=== PATIENT | female | born 1975 | race Caucasian/White ===

== ENCOUNTER 2018-07-09 11:24 | Observation (INO) ==
[2018-07-09] MEDS ORDERED: Sodium Chlor 0.9% Inj 500 ML IV.CONT ONE (12:45)
[2018-07-09] MEDS ORDERED: Metoprolol Tartrate 25 MG Tablet PO ONE (12:45)
[2018-07-09] MEDS ORDERED: Chlorhexidine Gluconate 2% 1 Pack (2 Cloths) TOPICAL ONE (12:45)
[2018-07-09] MEDS ORDERED: ceFAZolin 2 GM IV; once IV.SIG ONE (13:00)
[2018-07-09] MEDS ORDERED: Famotidine PF Inj 20 MG/2 ML Vial ONE (13:37)
[2018-07-09] MEDS ORDERED: Bupivacaine 0.5% Inj 50 ML MDV Vial ONE (14:16)
--- NOTE | 2018-07-09 16:12 | XR ---
EXAM DATE: 07/09/2018 4:09 PM EST AGE/SEX: 43 years / Female INDICATIONS: Removal of bone spur on left calcaneous. CLINICAL DATA: This is the patient's initial encounter. Patient reports that signs and symptoms have been present for 1 day and indicates a pain score of Nonresponsive. MEDICAL/SURGICAL HISTORY: Non-responsive. Non-responsive. COMPARISON: No prior exams available for comparison. FINDINGS: 2 intraoperative films were performed. There is post surgical changes of the soft tissues posterior t o the calcaneus. The visualized bony structures are grossly intact. The enthesophyte along the rubber calender helper ior calcaneus appears to be removed on the second image. CONCLUSION: Removal of enthesophyte along the posterior calcaneus. Electronically signed by: Clive Humphries MD Board Certified Radiologist 07/09/2018 4:11 PM EST
[2018-07-09] MEDS ORDERED: fentaNYL Citrate Inj 100 MCG/2 ML Ampul ONE (17:33)
[2018-07-09] MEDS ORDERED: Morphine Inj 4 MG/ML Vial ONE (17:33)
[2018-07-09] MEDS ORDERED: *Ondansetron Inj 4 MG/2 ML Vial PERIprocedural Use ONLY ONE (17:44)
--- NOTE | 2018-07-09 17:53 | P.HPIM ---
History of Present Illness Primary Care Physician: Tanja Sanches Medications and Allergies Allergies Allergy/AdvReac Type Severity Reaction Status Date / Time Sulfa (Sulfonamide AdvReac unknown Verified 07/09/18 12:04 Antibiotics) Home Medications Medication Instructions Recorded Confirmed Type No Known Home Medications 07/08/18 07/09/18 History Active Medications: Active Medications Lactated Ringer's (Lr 1000 Ml Inj) 1,000 mls @ 30 mls/hr IV.CONT .Q24H ONE Stop: 07/10/18 12:44 Last Infusion: 07/09/18 17:18 Dose: Infused Sodium Chloride (Ns Inj) 500 mls @ 30 mls/hr IV.CONT .[id number] ONE Stop: 07/10/18 05:24 Last Admin: 07/09/18 13:27 Dose: Not Given Physical Exam Vital signs: Last Vital Signs Temp 98.3 F 07/09/18 12:07 Pulse 88 07/09/18 12:07 Resp 18 07/09/18 12:07 BP 154/97 H 07/09/18 12:07 Pulse Ox 100 07/09/18 13:45 Caprini VTE Risk Assessment Caprini Risk Assessment Model: Point Value = 1 Point Value = 2 Point Value = 3 Point Value = 5 Age 41-60 Minor surgery BMI > 25 kg/m2 Swollen legs Varicose veins or History of unexplained or recurrent spontaneous Oral contraceptives or hormone replacement Sepsis (< 1 month) Serious lung disease, including pneumonia (< 1 month) Abnormal pulmonary function Acute myocardial infarction Congestive heart failure (< 1 month) History of inflammatory bowel disease Medical patient at bed rest Age 61-74 Arthroscopic surgery Major open surgery (> 45 min) Laparoscopic surgery (> 45 min) Malignancy Confined to bed (> 72 hours) Immobilizing plaster cast Central venous access Age >= 75 History of VTE Family history of VTE Factor V Leiden Prothrombin [id number] Lupus anticoagulant Anticardiolipin antibodies Elevated serum homocysteine Heparin-induced thrombocytopenia Other congenital or acquired thrombophilia Stroke (< 1 month) Elective arthroplasty Hip, pelvis, or leg fracture Acute spinal cord injury (< 1 month) Prophylaxis Regimen: Total Risk Factor Score Risk Level Prophylaxis Regimen 0-1 Low Early ambulation 2 Moderate Order ONE of the following: *Sequential Compression Device (SCD) *Heparin 5000 units SQ BID 3-4 Higher Order ONE of the following medications: *Heparin 5000 units SQ TID *Enoxaparin/Lovenox 40 mg SQ daily (WT < 150 kg, CrCl > 30 mL/min) *Enoxaparin/Lovenox 30 mg SQ daily (WT < 150 kg, CrCl > 10-29 mL/min) *Enoxaparin/Lovenox 30 mg SQ BID (WT < 150 kg, CrCl > 30 mL/min) AND/OR *Sequential Compression Device (SCD) 5 or more Highest Order ONE of the following medications: *Heparin 5000 units SQ TID (Preferred with Epidurals) *Enoxaparin/Lovenox 40 mg SQ daily (WT < 150 kg, CrCl > 30 mL/min) *Enoxaparin/Lovenox 30 mg SQ daily (WT < 150 kg, CrCl > 10-29 mL/min) *Enoxaparin/Lovenox 30 mg SQ BID (WT < 150 kg, CrCl > 30 mL/min) AND *Sequential Compression Device (SCD) H&P: Quality VTE Deep Vein Thrombosis/Pulmonary Embolism Present on Admission: No
[2018-07-09] MEDS ORDERED: Acetaminophen 325 MG Tablet PO PRN (17:54)
[2018-07-09] MEDS ORDERED: Bisacodyl 10 MG Supp RECTAL PRN (17:54)
[2018-07-09] MEDS ORDERED: *morphine SULFATE 4 MG/ML PERIprocedure ONLY ONE (18:16)
[2018-07-09] MEDS: Morphine Sulfate Inj 2 MG/ML Vial IV.PUSH PRN (23:29)
--- NOTE | 2018-07-10 11:34 | P.PNIM ---
Subjective Interval history: Pt doing well today Pain is controlled PT to see the pt today to determine any home care needs Podiatry has cleared her for discharge with a non weight bearing status on the left foot. She has a followup appt scheduled for 07/12/[address] Hale. Physical Exam Vital signs: Last Vital Signs Temp 97.7 F 07/10/18 08:00 Pulse 72 07/10/18 08:00 Resp 17 07/10/18 08:00 BP 119/66 07/10/18 08:00 Pulse Ox 95 07/10/18 08:00 Narrative: General: NAD, AAOx3 Chest: CTA Cardiac: Regular Abd: +BS, soft ND/NT Ext: Left foot bandages are c/d/i Assessment and Plan Assessment (1) Calcaneal spur of left foot: Code(s): M77.32 - Calcaneal spur, left foot Status: Acute Plan Heal spur removal - Pt s/p left posterior calcaneal exostosis excision with possible Achilles tendon repair on 07/09/[address] Hale - Pt was admitted overnight for observation - She is doing well today. Pain is controlled - Pt has been cleared for discharge by podiatry. - Dr. Almaraz has hand written a prescription for Percocet 5/325 Q6H PRN for the pt - She has a followup appt scheduled with Dr. Hale for 07/12/18. - She is to be nonweight bearing to the left foot - PT to evaluate this morning to determine any home care needs prior to discharge. Attending Attestation Patient examined. Assessment and plan formulated with Chikis Alvarez PA-C. I agree with the above. dc today. Progress Note: Quality VTE Deep Vein Thrombosis/Pulmonary Embolism Present on Admission: No
[2018-07-10] MEDS: Morphine Sulfate Inj 2 MG/ML Vial IV.PUSH PRN (13:41)
--- NOTE | 2018-07-10 16:04 | P.PNPOD ---
Subjective Interval history: s/p Left calcaneal exostectomy DOS 07/09/[address] Hale Seen at bedside. NO n/v/f/dc/, no calf pain. + tingling to the toes. Physical Exam Vital signs: Vital Signs 07/09/18 17:45 07/09/18 18:00 07/09/18 18:15 Temperature Pulse Rate 89 91 H 89 Respiratory Rate 15 17 15 Blood Pressure 151/77 H 147/67 H 146/67 H Pulse Oximetry 95 100 95 07/09/18 18:24 07/09/18 20:00 07/10/18 00:00 Temperature 98.2 F 97.3 F L 97.6 F Pulse Rate 93 H 83 87 Respiratory Rate 15 17 17 Blood Pressure 146/65 H 124/65 130/65 Pulse Oximetry 96 98 97 07/10/18 04:00 07/10/18 04:22 07/10/18 08:00 Temperature 98.0 F 97.7 F Pulse Rate 77 100 H 72 Respiratory Rate 17 17 Blood Pressure 119/61 119/66 Pulse Oximetry 97 95 07/10/18 10:10 07/10/18 12:00 Temperature 98.2 F Pulse Rate 80 Respiratory Rate 18 Blood Pressure 135/72 Pulse Oximetry 95 95 Intake & Output 07/09/18 07/10/18 07/10/18 18:59 06:59 18:59 Intake Total 1150 / 1150 Output Total 5 / 5 1100 / 1100 Balance 1145 / 1145 -1100 / -1100 Weight 127.9 kg 127.9 kg Intake: IV 1150 / 1150 LR 1000 mL Inj 1,000 ML @ 30 1000 / 1000 mls/hr IV.CONT .Q24H ONE Rx#: [id number] Ancef 2 GM Premix Inj 2 gm In 50 / 50 50 ml @ 100 mls/hr IV.SIG ONCE ONE Rx#:[id number] Ancef Inj 1,000 MG In NS Inj 100 / 100 100 ML @ 100 mls/hr IV.SIG ONCE ONE Rx#:[id number] Output: Urine 1100 / 1100 Estimated Blood Loss 5 / 5 Other: Date of Last Bowel Movement 07/09/18 Weight On Admission 127.9 kg Narrative: LLE intact dressing. passive ROM sensate to light touch CFT < 3 secs Medications and Allergies Active Medications: Active Medications Acetaminophen (Tylenol) 650 mg PO Q4H PRN PRN Reason: Temp > 100.4 Hydrocodone Bitart/Acetaminophen ([place] 7.5/325) 1 tab PO Q4H PRN PRN Reason: pain 3-10 Last Admin: 07/10/18 13:40 Dose: 1 tab Al Hydroxide/Mg Hydroxide (Milk Of Magnesia Liq) 30 ml PO Q12H PRN PRN Reason: Mild Constipation Bisacodyl (Dulcolax Supp) 10 mg RECTAL DAILY PRN PRN Reason: SEVERE CONSITIPATION Lactulose (Lactulose Liq) 30 ml PO DAILY PRN PRN Reason: SEVERE CONSITIPATION Miscellaneous Information ([facility] [place] [facility]) 0 each OTHER UNSCH PRN PRN Reason: SEE LABEL COMMENTS Stop: 07/10/18 17:24 Morphine Sulfate (Morphine Inj) 2 mg IV.PUSH Q4H PRN PRN Reason: breakthough pain over 7 Last Admin: 07/10/18 13:41 Dose: 2 mg Ondansetron HCl (Zofran Inj) 4 mg IV.PUSH Q6H PRN PRN Reason: NAUSEA OR VOMITING Sennosides (Senokot) 17.2 mg PO Q12H PRN PRN Reason: Moderate Constipation Sodium Chloride (Ns Flush) 2 ml IV.FLUSH BID IRIS Last Admin: 07/10/18 08:54 Dose: 2 ml Sodium Chloride (Ns Flush) 2 ml IV.FLUSH PRN PRN PRN Reason: FLUSH AFTER USING IV ACCESS Allergies Allergy/AdvReac Type Severity Reaction Status Date / Time Sulfa (Sulfonamide AdvReac unknown Verified 07/09/18 12:04 Antibiotics) Home Medications Medication Instructions Recorded Confirmed Type No Known Home Medications 07/08/18 07/09/18 History Results - Imaging Impressions Foot X-Ray 07/09/18 00:00 CONCLUSION: Removal of enthesophyte along the posterior calcaneus. Assessment and Plan - Assessment (1) Calcaneal spur of left foot Code(s): M77.32 - Calcaneal spur, left foot Status: Acute - Plan OK to d/c Pain medication rx [facility] RX: PT consult and gait training for [facility] f/u with Dr Hale.
--- NOTE | 2018-07-25 18:39 | MP ---
cc: Bridgette Hale DPM DATE OF OPERATION: 07/09/2018 SURGEON: Bridgette Hale DPM INTERNAL AFFAIRS COMMANDER: None. PREOPERATIVE DIAGNOSIS: Left foot painful posterior exostosis. Left foot Achilles tendonitis. POSTOPERATIVE DIAGNOSIS: Left foot painful posterior exostosis. Left foot Achilles tendonitis. PROCEDURE: Left foot Yaron's deformity excision with detachment and reattachment of Achilles tendon. ANESTHESIA: General. HEMOSTASIS: Thigh tourniquet set at 250 mmHg. ESTIMATED BLOOD LOSS: 20 mL. MATERIALS: 2-0 and 3-0 Vicryl and 3-0 nylon. INJECTABLES: None. COMPLICATIONS: None. INDICATIONS FOR PROCEDURE: The patient has exhausted all conservative treatment. She would like to proceed with surgical intervention. She understands all risks, alternatives, benefits, and complications associated with the procedure. DESCRIPTION OF PROCEDURE: The patient was brought to the operating room. General anesthesia was induced. She was placed prone on the operating room table. All bony prominences were well padded. After the patient was placed on the table, pneumatic thigh tourniquet was placed. Left foot was prepped and draped in the usual sterile fashion. Attention was directed to the insertion of the Achilles tendon. A J-shaped incision was made along the distal aspect of the Achilles tendon and curved up the medial aspect of the Achilles tendon. The incision was deepened through skin and subcutaneous tissue in one complete musculocutaneous flap. This flap was removed off the Achilles tendon. The Achilles tendon was debrided of inflammatory nonviable tissue. Achilles tendon was detached from the posterior Achilles. Bursa was noted between the bone and the Achilles tendon. This bursa was debrided of all inflammatory tissue. A sagittal saw was utilized to remove the exostosis to the posterior calcaneus. The Achilles tendon was then reattached with Arthrex B bridge. There was noted to be excellent anastomosis. Upon calf squeeze, there was noted to be plantar flexion of the foot. The site was copiously irrigated. NEOX cord was placed to incision. Incision was closed with 2-0 and 3-0 Vicryl, Adaptic, 4 x 4s cast padding, Chetan wrap applied to the left lower extremity and posterior splint. The patient received preoperative and postoperative antibiotic, pain medication and anticoagulation. She will be nonweightbearing. She will stay overnight for observation. VANESSA Koo , 06:11 PM , 06:20 PM
== END 2018-07-10 16:12 | disposition home or self-care (01) ==
LOC: HSDI 11:24 → HSDC 11:24 → N06 18:48
PROVIDERS: ADMIT Podiatrist Foot & Ankle Surgery; ATTEND Podiatrist Foot & Ankle Surgery